=== PATIENT | female | born 1965 | race Caucasian/White ===

== ENCOUNTER 2017-10-14 14:16 | Outpatient (CLI) | payer BC ==
--- NOTE | 2017-10-14 15:31 | MMO ---
BILATERAL DIAGNOSTIC MAMMOGRAMS: Date: 10/14/17 HISTORY: 52-year-old female presents for bilateral diagnostic mammogram with history of pain in the right anna st extending from near the nipple up to the upper inner aspect of the right breast. There is no palpa ble finding according to the patient. COMPARISON: Prior examinations from [facility] dated 03/23/14 and 12/11/16. FINDINGS: This patient's mammogram was interpreted with the assistance of computer-aided detection. CC, MLO, and mediolateral views of right and left breast are performed. Scattered areas of fibroglandular density are noted bilaterally. No direct or indirect evidence of ma lignancy. Occasional bilateral typically benign calcifications. IMPRESSION: BIRADS 2: Benign Finding(s) Continue routine screening. Stable appearance from prior outside mammograms. An ultrasound examination was not performed because the patient indicated that there was no palpable mass, only pain from the inner aspect of her nipple all the way up to the inner aspect of the right b reast. POS: DEBBIE
== END 2017-10-14 14:17 | disposition home or self-care (01) ==
LOC: MAMMO 14:16
PROVIDERS: ATTEND Obstetrics & Gynecology
DX: N63.0 Unspecified lump in unspecified breast (principal)
CPT/HCPCS: 77066; G0204